=== PATIENT | male | born 1965 | race Caucasian/White ===

== ENCOUNTER → 2018-04-12 | Outpatient (CLI) | payer OTHER ==
[~2018-04-12] MED LIST: LEVOTHYROXINE100 MC1 PO
--- NOTE | 2018-04-12 10:13 | Diagnostic Imaging Report ---
MRI SPINE CERVICAL WO HISTORY: Neck pain COMPARISON: None. TECHNIQUE: Sagittal T1, sagittal T2, sagittal inversion recovery, axial T2/GRE and axial T1 weighted MR images of the cervical spine were obtained without intravenous contrast. DISCUSSION: Alignment: Straightening of the cervical lordosis. No scoliosis. Vertebrae: No definite evidence for fractures, infection, or neoplasm. Cervicomedullary junction: No abnormalities. Spinal cord: Normal in signal and morphology from the foramen magnum through T2-T3. Soft tissues: No signal abnormalities. Mild multilevel cervical disc degeneration is present. There is a posterior annular fissure at C6-C7. Mild atlantoaxial arthrosis is present as well. C2-C3: Patent canal and foramina. C3-C4: Mild left foraminal stenosis due to uncovertebral and facet arthrosis. No significant canal or right foraminal stenosis. C4-C5: Mild left foraminal stenosis due to uncovertebral and facet arthrosis. No significant canal or right foraminal stenosis. C5-C6: Mild canal stenosis due to posterior disc osteophyte complex and ligamentum flavum thickening. Mild left foraminal stenosis due to uncovertebral and facet arthrosis. No significant right foraminal stenosis. C6-C7: Mild canal stenosis due to posterior disc osteophyte complex and ligamentum flavum thickening. No significant foraminal stenosis. C7-T1: Patent canal and foramina. IMPRESSION: 1. Mild multilevel cervical disc degeneration. 2. Mild degenerative canal stenoses at C5-C6 and C6-C7. 3. Mild left-sided degenerative foraminal stenoses from C3-C4 to C5-C6. Signed by: Dr. Anselmo Raines M.D. on 04/12/2018 10:09 AM
--- NOTE | 2018-04-12 10:21 | Diagnostic Imaging Report ---
MRI SPINE LUMBAR WO HISTORY: Low back pain COMPARISON: None. TECHNIQUE: Sagittal T1, sagittal T2, sagittal STIR, axial T2, coronal T2, and axial proton density weighted images of the lumbar spine were obtained without contrast. DISCUSSION: Number of non-rib bearing lumbar vertebral bodies: 5. 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 Alignment: Normal lordosis. No scoliosis. Vertebrae: No fractures, infection or neoplasm. Conus medullaris: Normal, ends at L1-L2. Cauda equina: No masses or arachnoiditis. Posterior paraspinal muscles: Well preserved. No signal abnormalities. Soft tissues: Small round T2 hyperintense lesion in the left kidney is likely a cyst. There is minimal disc degeneration from L2-L3 to L4-L5. T12-L1: Patent canal and foramina. L1-L2: Patent canal and foramina. L2-L3: Mild bilateral foraminal stenoses due to disc bulge and facet arthrosis. No significant canal stenosis. L3-L4: Mild bilateral foraminal stenoses due to disc bulge and facet arthrosis. No significant canal stenosis. L4-L5: Mild bilateral foraminal stenoses due to disc bulge and facet arthrosis. No significant canal stenosis. L5-S1: Patent canal and foramina. IMPRESSION: 1. Minimal multilevel lumbar disc degeneration without significant canal stenosis. 2. Mild bilateral degenerative foraminal stenoses from L2-L3 to L4-L5. Signed by: Dr. Anselmo Raines M.D. on 04/12/2018 10:17 AM
== END ==
LOC: MRI 08:21
PROVIDERS: ATTEND Specialist
DX: M54.2 Cervicalgia (principal); M50.30 Other cervical disc degeneration, unspecified cervical region; M54.5 Low back pain
CPT/HCPCS: 72141; 72148